=== PATIENT | female | born 1985 | race Caucasian/White ===

== ENCOUNTER → 2016-12-17 | Outpatient (CLI) | payer OTHER ==
[2016-12-17 18:20] LABS: FREE T4 1.02 NG/DL (0.76-1.46)
[2016-12-17 18:41] LABS: BASO % 0.3 % (0.0-1.0); EOS % 0.4 % (0.0-3.0); LARGE UNSTAINED CELL # 0.1 K/mm3 (0.0-0.4); LARGE UNSTAINED CELL % 1.3 % (0.0-4.0); LYMPH # 2.3 K/mm3 (1.5-4.5); LYMPH % 27.8 % (24.0-44.0); MEAN CORPUSCULAR HEMOGLOBIN 29.8 pg (27.0-33.0); MEAN CORPUSCULAR HGB CONC 33.1 g/dl (32.0-36.5); MONO # 0.2 K/mm3 (0.0-0.8); MONO % 2.6 % (0.0-5.0); NEUTROPHILS # 5.6 K/mm3 (1.8-7.7); NEUTROPHILS % 67.6 % (36.0-66.0); PLATELET COUNT, AUTOMATED 311 k/mm3 (150-450); RED CELL DISTRIBUTION WIDTH 12.5 % (11.5-14.5); WHITE BLOOD COUNT 8.2 K/mm3 (4.0-10.0)
[2016-12-18 10:25] LABS: HBsAg Prenatal NEGATIVE (NEGATIVE)
[2016-12-21 14:10] LABS: CONTROL LINE INT CTR LINE PRESENT; HIV SCRN NEGATIVE (NEGATIVE); HIV SCRN1 NEGATIVE (NEGATIVE)
== END ==
LOC: M SMT 12:36
PROVIDERS: ATTEND Specialist
DX: Z36 Encounter for antenatal screening of mother (principal)

== ENCOUNTER → 2017-01-14 | Outpatient (REF) | payer OTHER | LOC: M LAB REF 12:51 | PROVIDERS: ATTEND Specialist | DX: R30.0 Dysuria (principal) ==

== ENCOUNTER → 2017-02-19 | Outpatient (REF) | payer OTHER | LOC: M LAB REF 17:00 | PROVIDERS: ATTEND Nurse Practitioner Family | DX: R30.0 Dysuria (principal) ==

== ENCOUNTER → 2017-03-03 | Outpatient (REF) | payer OTHER | LOC: M LAB REF 16:50 | PROVIDERS: ATTEND Nurse Practitioner Family | DX: O15.9 Eclampsia, unspecified as to time period (principal); Z3A.00 Weeks of gestation of pregnancy not specified ==

== ENCOUNTER → 2017-10-18 | Outpatient (REF) | payer OTHER ==
[2017-10-18 18:33] LABS: MEAN CORPUSCULAR HGB CONC 33.8 g/dl (32.0-36.5); MEAN CORPUSCULAR VOLUME 88.9 fl (80.0-96.0); PLATELET COUNT, AUTOMATED 354 10^3/uL (150-450); RED CELL DISTRIBUTION WIDTH 12.2 % (11.5-14.5); WHITE BLOOD COUNT 8.6 10^3/uL (4.0-10.0)
[2017-10-18 19:04] LABS: HCG, SERUM QUANTITATIVE 68252 MIU/ML
[2017-10-20 10:47] LABS: HBsAg Prenatal NEGATIVE (NEGATIVE)
== END ==
LOC: M LAB REF 16:37
PROVIDERS: ATTEND Advanced Practice Midwife
DX: O36.80X0 Pregnancy with inconclusive fetal viability, not applicable or unspecified (principal); Z32.01 Encounter for pregnancy test, result positive; O99.280 Endocrine, nutritional and metabolic diseases complicating pregnancy, unspecified trimester; E07.89 Other specified disorders of thyroid; Z3A.00 Weeks of gestation of pregnancy not specified

== ENCOUNTER → 2017-12-20 | Outpatient (CLI) | payer OTHER ==
[2017-12-20 15:21] LABS: FREE T4 1.01 NG/DL (0.76-1.46); THYROID STIMULATING HORMONE 0.833 uIU/ML (0.358-3.740)
== END ==
LOC: M LAB 13:47
DX: Z34.82 Encounter for supervision of other normal pregnancy, second trimester (principal)
CPT/HCPCS: 84443